=== PATIENT | male | born 1960 | race American Indian/Alaskan Native ===

== ENCOUNTER 2018-05-07 11:09 | Emergency (ER) | payer MEDICAID, OTHER ==
[2018-05-07 11:17] VITALS: BMI 30.2
--- NOTE | 2018-05-07 11:57 | ED PDOC ---
Lower Extremity Pain/Injury Time Seen by Provider: 05/07/18 11:22 Chief Complaint (Nursing): Lower Extremity Problem/Injury Chief Complaint (Provider): Leg pain History Per: Patient Additional Complaint(s): Pt is a 57 yo male presents with complaints of inner thigh pain from walking. Pt states he is homeless with biopolar/ schizophrenia. When asked if he had SI/HI he stated, "I murdered my mother and brother." Pt then talking to himself, unable to be understood by real estate underwriter. asked for some Haldol or cogentin. Pt declined any drug or alcohol use Past Medical History Reviewed: Nursing Documentation, Vital Signs Vital Signs: Last Vital Signs Temp 97 F L 05/07/18 11:16 Pulse 77 05/07/18 11:16 Resp BP 126/76 05/07/18 11:16 Pulse Ox 100 05/07/18 11:16 - Medical History PMH: Bipolar Disorder, Schizophrenia Denies: Diabetes, Hepatitis, HIV, HTN, Chronic Kidney Disease, Seizures, Sexually Transmitted Disease - Family History Family History: States: Unknown Family Hx - Home Medications Home Medications: Ambulatory Orders Medication Instructions Recorded Dilantin 04/17/14 Tegretol 04/17/14 risperiDONE [RisperDAL Tab] 3 mg PO BID #60 tab 04/27/14 - Allergies Allergies/Adverse Reactions: Allergies Allergy/AdvReac Type Severity Reaction Status Date / Time No Known Allergies Allergy Unverified 04/17/14 01:12 Review of Systems ROS Statement: Except As Marked, All Systems Reviewed And Found Negative Musculoskeletal: Positive for: Leg Pain Physical Exam - Reviewed Nursing Documentation Reviewed: Yes Vital Signs Reviewed: Yes - Physical Exam Appears: Positive for: Well, Non-toxic, No Acute Distress Head Exam: Positive for: ATRAUMATIC, NORMAL INSPECTION, NORMOCEPHALIC Skin: Positive for: Normal Color, Warm, DRY Eye Exam: Positive for: EOMI, Normal appearance, PERRL ENT: Positive for: Normal ENT Inspection Neck: Positive for: Normal, Painless ROM Cardiovascular/Chest: Positive for: Regular Rate, Rhythm Respiratory: Positive for: CNT, Normal Breath Sounds Gastrointestinal/Abdominal: Positive for: Normal Exam, Soft Back: Positive for: Normal Inspection Extremity: Positive for: Normal ROM, Other (no edema, ecchymosis, erythema or rash noted). Negative for: Tenderness, Deformity, Swelling Neurologic/Psych: Positive for: Alert, Oriented - Laboratory Results Result Diagrams: 05/07/18 13:44 05/07/18 13:44 - ECG O2 Sat by Pulse Oximetry: 100 Medical Decision Making Medical Decision Making: Diagnostics ordered for medical clearance. Pt placed on 1:1 and underwent crisis eval, see noted CBC and COMP WNL UDS (-) Alcohol < 10 UA: Trace leuks, 6 wbc CXR: NAD, as read by LALO EKG: SB at 54 bpm, no axis devation or acute TS changes, as read by LALO and ED MD Pt medically cleared and pending [facility] screener 1600 Case endorsed to LALO Spencer at 2000 pending [facility] evaluation Disposition - Clinical Impression Clinical Impression: Bipolar 1 disorder, Schizophrenia - Patient ED Disposition Is Patient to be Admitted: Transfer of Care - Disposition Disposition: Transfer of Care Disposition Time: 19:38 Condition: STABLE Forms: [facility] (Haitian)
--- NOTE | 2018-05-07 13:16 | RAD ---
Date of service: 05/07/2018 PROCEDURE: CHEST RADIOGRAPH, 1 VIEW HISTORY: med screening COMPARISON: 04/20/2014 FINDINGS: LUNGS: Mild hypoventilatory changes without appreciable focal infiltrate. PLEURA: No pneumothorax or pleural fluid seen. CARDIOVASCULAR: Normal. OSSEOUS STRUCTURES: No significant abnormalities. VISUALIZED UPPER ABDOMEN: Normal. OTHER FINDINGS: None. IMPRESSION: Low lung volumes with mild hypoinflated lungs but no focal infiltrate.
[2018-05-07 13:51] LABS: BASO % 0.4 % (0.0-2.0); EOS # 0.2 K/uL (0.0-0.7); EOS % 4.6 % (0.0-4.0); HEMOGLOBIN 12.6 g/dL (12.0-18.0); LYMPH # 1.4 K/uL (1.0-4.3); LYMPH % 27.5 % (20.0-40.0); MEAN CELL VOLUME 94.1 fl (80.0-94.0); MEAN CORPUSCULAR HEMOGLOBIN 31.1 pg (27.0-31.0); MEAN CORPUSCULAR HGB CONC 33.1 g/dL (33.0-37.0); MEAN PLATELET VOLUME 7.9 fl (7.2-11.7); MONO # 0.4 K/uL (0.0-0.8); MONO % 8.5 % (0.0-10.0); NRBC % 0.1 % (0.0-0.0); RBC 4.06 Mil/uL (4.40-5.90); RED CELL DISTRIBUTION WIDTH 13.7 % (11.5-14.5)
[2018-05-07 13:58] LABS: SQUAMOUS EPITHIAL 2 /hpf (0-5); URINE BILIRUBIN NEGATIVE (NEGATIVE); URINE BLOOD NEGATIVE (NEGATIVE); URINE CLARITY SLIGHTY-CLOUDY (Clear); URINE COLOR AMBER (YELLOW); URINE GLUCOSE (UA) NEG (Normal); URINE HYALINE CAST 0-2 /hpf (0-2); URINE LEUKOCYTE ESTERASE TRACE Leu/uL (Negative); URINE PROTEIN 30 mg/dL (NEGATIVE)
[2018-05-07 14:02] LABS: ALB/GLOB RATIO 1.2 (1.0-2.1); ALBUMIN 3.8 g/dL (3.5-5.0); ALT/SGPT 31 U/L (21-72); AST/SGOT 27 U/L (17-59); BLOOD UREA NITROGEN 8 mg/dl (9-20); CALCIUM 9.6 mg/dL (8.4-10.2); GFR NON-AFRICAN AMERICAN > 60
[2018-05-07 14:23] LABS: BARBITURATES, UR NEGATIVE (NEGATIVE); BENZODIAZEPINES, UR NEGATIVE (NEGATIVE); OPIATES, UR NEGATIVE (NEGATIVE); PHENCYCLIDINE, UR NEGATIVE (NEGATIVE)
--- NOTE | 2018-05-08 05:58 | ED PDOC ---
- Laboratory Results Result Diagrams: 05/07/18 13:44 05/07/18 13:44 - ECG O2 Sat by Pulse Oximetry: 98 <Bindu Spencer - Last Filed: 05/08/18 05:55> - Laboratory Results Result Diagrams: 05/07/18 13:44 05/07/18 13:44 <Dylan Albarado - Last Filed: 05/08/18 07:15> Medical Decision Making Medical Decision Making: Pt endorsed by LALO Alvarado pending evaluation of [facility]. Pt accepted by [facility] psychiatric unit. Pt calm and cooperative overnight in ER. Continued care at [address] Albarado. <Bindu Spencer - Last Filed: 05/08/18 05:55> Medical Decision Makin Patient endorsed to Dr. Alfonso, pending [facility] bed. <Dylan Albarado - Last Filed: 05/08/18 07:15> Disposition - POA Present On Arrival: None - Disposition Disposition: Transfer of Care Disposition Time: 06:00 <Bindu Spencer - Last Filed: 05/08/18 05:55> <Dylan Albarado - Last Filed: 05/08/18 07:15> - Clinical Impression Clinical Impression: Bipolar 1 disorder, Schizophrenia - Disposition Condition: STABLE Forms: [facility] (Uzbek)
--- NOTE | 2018-05-08 08:02 | CARD ---
APPROVED REPORT Date of service: 05/07/2018 EKG Measurement Heart [id number] <Conclusion> Sinus bradycardia Minimal voltage criteria for LVH, may be normal variant Borderline ECG
--- NOTE | 2018-05-08 14:54 | ED PDOC ---
- Laboratory Results Result Diagrams: 05/07/18 13:44 05/07/18 13:44 - ECG O2 Sat by Pulse Oximetry: 98 Disposition - Clinical Impression Clinical Impression: Bipolar 1 disorder, Schizophrenia - POA Present On Arrival: None - Disposition Disposition: Transfer of Care Disposition Time: 15:00 Condition: STABLE Forms: [facility] (Wolof) Patient Signed Over To: Susanna Goff
--- NOTE | 2018-05-08 15:56 | ED PDOC ---
- Laboratory Results Result Diagrams: 05/07/18 13:44 05/07/18 13:44 - ECG O2 Sat by Pulse Oximetry: 98 (RA) Pulse Ox Interpretation: Normal Medical Decision Making Medical Decision Makin:00 --Patient signed out to this provider pending bed availability at [facility] and psychiatric admission. 24:[address] Albarado. Pending bed availability at [facility] for involuntary psychiatric admission. Scribe Attestation: Documented by Joy Obando, acting as a scribe for Susanna Goff MD Provider Scribe Attestation: All medical record entries made by the Scribe were at my direction and personally dictated by me. I have reviewed the chart and agree that the record accurately reflects my personal performance of the history, physical exam, medical decision making, and the department course for this patient. I have also personally directed, reviewed, and agree with the discharge instructions and disposition. Disposition - Clinical Impression Clinical Impression: Bipolar 1 disorder, Schizophrenia - POA Present On Arrival: None - Disposition Disposition: Transfer of Care Disposition Time: 00:00 Condition: STABLE
--- NOTE | 2018-05-09 00:42 | ED PDOC ---
- Laboratory Results Result Diagrams: 05/07/18 13:44 05/07/18 13:44 - ECG O2 Sat by Pulse Oximetry: 98 (RA) Medical Decision Making Medical Decision Makin:00 Patient signed out to this provider. Pending bed availability at [facility]. 0300 Patient asleep, no complaints [address] Jackson pending bed availbility Scribe Attestation: Documented by Pavan Gaona acting as a scribe for Dylan Albarado MD. Provider Scribe Attestation: All medical record entries made by the Scribe were at my direction and personally dictated by me. I have reviewed the chart and agree that the record accurately reflects my personal performance of the history, physical exam, medical decision making, and the department course for this patient. I have also personally directed, reviewed, and agree with the discharge instructions and disposition. Disposition - Clinical Impression Clinical Impression: Bipolar 1 disorder, Schizophrenia - POA Present On Arrival: None - Disposition Disposition: Transfer of Care Disposition Time: 07:00 Condition: STABLE Forms: [facility] (Kuwaiti) Patient Signed Over To: Kassandra Jackson Handoff Comments: pending bed avaibility
--- NOTE | 2018-05-09 07:30 | ED PDOC ---
- Laboratory Results Result Diagrams: 05/07/18 13:44 05/07/18 13:44 - ECG O2 Sat by Pulse Oximetry: 98 (RA) Pulse Ox Interpretation: Normal Medical Decision Making Medical Decision Makin Received endorsement from Dr. Albarado. Patient [place] [facility] availability. 1115 Pt administered Ativan PO as ordered by Dr. Altamirano. Scribe Attestation: Documented by Eveline Gray, acting as a scribe for Kassandra Jackson MD. Provider Scribe Attestation: All medical record entries made by the Scribe were at my direction and personally dictated by me. I have reviewed the chart and agree that the record accurately reflects my personal performance of the history, physical exam, medical decision making, and the department course for this patient. I have also personally directed, reviewed, and agree with the discharge instructions and disposition. Disposition - Clinical Impression Clinical Impression: Bipolar 1 disorder, Schizophrenia - POA Present On Arrival: None - Disposition Disposition: Transfer of Care Disposition Time: 19:00 Condition: STABLE Patient Signed Over To: Susanna Goff
--- NOTE | 2018-05-09 09:46 | CP.PCM.CON ---
History of Present Illness - History of Present Illness History of Present Illness: Psychiatry consult note Patient is a poor historian due to acute psychosis, disorganization and lack of cooperation with interview CC: "I don't need to be here." HPI: 57 yo AA male, presents with delusions that he killed his family, bizarre affect, in the context of non-compliance with medications. He was minimally cooperative w/ interview, just stating that he needs to be discharged from the hospital and does not want to take any medications. Patient is pacing, standing in a menacing manner and has been verbally aggressive towards staff. PPHx: H/o Bipolar Disorder w/ psychotic features vs Schizoaffective Disorder; patient declines to provide extensive psychiatric history at this time SHx: Homeless; denies drug/etoh use; although as per records, patient has a h/o alcohol use Impression: 57 yo male w/ h/o Schizoaffective Disorder vs Bipolar Disorder w/ Psychotic Features, presents acutely decompensated in the context of non- compliance with treatment and medications. Patient accepted to [facility] for involuntary psychiatric admission. -Transfer to [facility] when bed is available -Haldol 5 mg PO/IM Q4Hr PRN agitation; Ativan 2 mg PO/IM Q4HR PRN agitation; Benadryl 50 mg PO/IM Q4HR PRN agitation Past Patient History - Past Medical History & Family History Past Medical History?: No - Past Social History Smoking Status: Heavy Smoker > 10 Cigarettes Daily - CARDIAC Hx Hypertension: No - PULMONARY Hx Tuberculosis: No - NEUROLOGICAL Hx Seizures: No - HEENT Hx HEENT Problems: No - RENAL Hx Chronic Kidney Disease: No - ENDOCRINE/METABOLIC Hx Endocrine Disorders: No - HEMATOLOGICAL/ONCOLOGICAL Hx Human Immunodeficiency Virus (HIV): No - INTEGUMENTARY Hx Dermatological Problems: No - MUSCULOSKELETAL/RHEUMATOLOGICAL Hx Musculoskeletal Disorders: No - GASTROINTESTINAL Hx Gastrointestinal Disorders: Yes Hx Ulcer: Yes - GENITOURINARY/GYNECOLOGICAL Hx Sexually Transmitted Disorders: No - PSYCHIATRIC Hx Bipolar Disorder: Yes Hx Schizophrenia: Yes - SURGICAL HISTORY Hx Surgeries: No - ANESTHESIA Hx Anesthesia: No Meds Allergies/Adverse Reactions: Allergies Allergy/AdvReac Type Severity Reaction Status Date / Time No Known Allergies Allergy Unverified 04/17/14 01:12 - Medications Medications: Current Medications Lorazepam (Ativan) 2 mg PO ONCE ONE Stop: 05/09/18 09:39 Results - Vital Signs Recent Vital Signs: Last Vital Signs Temp 98.2 F 05/09/18 08:00 Pulse 50 L 05/09/18 08:00 Resp 16 05/09/18 08:00 BP 114/66 05/09/18 08:00 Pulse Ox 100 05/09/18 08:00 - Labs Result Diagrams: 05/07/18 13:44 05/07/18 13:44
--- NOTE | 2018-05-09 13:12 | ED PDOC ---
HPI: Psych/Substance Abuse Time Seen by Provider: 05/07/18 11:22 Chief Complaint (Nursing): Lower Extremity Problem/Injury Past Medical History Vital Signs: Last Vital Signs Temp 98.2 F 05/09/18 08:00 Pulse 50 L 05/09/18 08:00 Resp 16 05/09/18 08:00 BP 114/66 05/09/18 08:00 Pulse Ox 100 05/09/18 08:00 - Medical History PMH: Bipolar Disorder, Schizophrenia Denies: Diabetes, Hepatitis, HIV, HTN, Chronic Kidney Disease, Seizures, Sexually Transmitted Disease - Family History Family History: States: Unknown Family Hx - Home Medications Home Medications: Ambulatory Orders Medication Instructions Recorded Dilantin 04/17/14 Tegretol 04/17/14 risperiDONE [RisperDAL Tab] 3 mg PO BID #60 tab 04/27/14 - Allergies Allergies/Adverse Reactions: Allergies Allergy/AdvReac Type Severity Reaction Status Date / Time No Known Allergies Allergy Unverified 04/17/14 01:12 - Laboratory Results Result Diagrams: 05/07/18 13:44 05/07/18 13:44 - ECG O2 Sat by Pulse Oximetry: 100 Disposition - Clinical Impression Clinical Impression: Bipolar 1 disorder, Schizophrenia - Disposition Disposition: Transfer of Care Disposition Time: 07:00 Condition: STABLE Forms: [facility] (Malaysian) - POA Present On Arrival: None
[2018-05-09 17:33] VITALS: RESP 20
--- NOTE | 2018-05-09 17:42 | CP.PCM.CON ---
History of Present Illness - History of Present Illness History of Present Illness: late note for [id number] pt seen in emergency room after presenting leg pain, has history of schizophrenia or schizaffective disorder, does not need those medicines i just came for getting my leg checked. pt gives minimal detail does not feel like talking, does not have psychiatric problems-does not take medications for psych because they do no help his leg. Review of Systems - Psychiatric Psychiatric: Abnormal Sleep Pattern, Anxiety, Behavioral Changes, Difficulty Co ncentrating, Mood Swings, Paranoia Past Patient History - Past Medical History & Family History Past Medical History?: No - Past Social History Smoking Status: Heavy Smoker > 10 Cigarettes Daily - CARDIAC Hx Hypertension: No - PULMONARY Hx Tuberculosis: No - NEUROLOGICAL Hx Seizures: No - HEENT Hx HEENT Problems: No - RENAL Hx Chronic Kidney Disease: No - ENDOCRINE/METABOLIC Hx Endocrine Disorders: No - HEMATOLOGICAL/ONCOLOGICAL Hx Human Immunodeficiency Virus (HIV): No - INTEGUMENTARY Hx Dermatological Problems: No - MUSCULOSKELETAL/RHEUMATOLOGICAL Hx Musculoskeletal Disorders: No - GASTROINTESTINAL Hx Gastrointestinal Disorders: Yes Hx Ulcer: Yes - GENITOURINARY/GYNECOLOGICAL Hx Sexually Transmitted Disorders: No - PSYCHIATRIC Hx Bipolar Disorder: Yes Hx Schizophrenia: Yes - SURGICAL HISTORY Hx Surgeries: No - ANESTHESIA Hx Anesthesia: No Meds Allergies/Adverse Reactions: Allergies Allergy/AdvReac Type Severity Reaction Status Date / Time No Known Allergies Allergy Unverified 04/17/14 01:12 - Medications Medications: defer taking medications as they do not help his leg Physical Exam - Psychiatric Exam Psychiatric exam: Agitated, Anxious Additional comments: labile at times , paranoid does not know why people are trying to give him psych meds for his leg, not making eye contact, minimally participating in interview, appears disheveled poor insight and judgment Results - Vital Signs Recent Vital Signs: Last Vital Signs Temp 98.4 F 05/09/18 17:05 Pulse 73 05/09/18 17:05 Resp 20 05/09/18 17:05 BP 109/69 05/09/18 17:05 Pulse Ox 97 05/09/18 17:05 - Labs Result Diagrams: 05/07/18 13:44 05/07/18 13:44 Assessment & Plan - Assessment and Plan (Free Text) Assessment: schioaffective disorder bipolar type vs bipolar disorder manic with psychotic features Plan: pt has poor insight and judgment, at risk for self harm as does not think he needs any help other than help with his leg (has been cleared by er md), pt is to be screened by [facility] for involuntary commitment per attending physician. case discussed with psychiatric worker er as well as attending md. - Date & Time Date: 05/08/18 Time: 11:30
--- NOTE | 2018-05-09 20:31 | ED PDOC ---
- Laboratory Results Result Diagrams: 05/07/18 13:44 05/07/18 13:44 - ECG O2 Sat by Pulse Oximetry: 97 - Progress ED Course And Treament: 5p Rec'd endorsement from Dr Jackson. Pt medically cleared for transfer to involuntary psych admission at [facility], pending bed availability. Bed available. Transfer initiated. Continues to be stable. Disposition - Clinical Impression Clinical Impression: Bipolar 1 disorder, Schizophrenia - POA Present On Arrival: None - Disposition Disposition: Other Institution Disposition Time: 17:00 Condition: STABLE
[2018-05-09] MEDS ORDERED: Sterile Water 10 ML IV ONE (20:46)
[2018-05-10 01:08] VITALS: BP 115/71; PULSE 82; TEMP 97.8; O2SAT 98
== END 2018-05-09 20:51 | disposition short-term general hospital (02) ==
LOC: H.ER 11:09
DX: F20.9 Schizophrenia, unspecified (principal); F31.9 Bipolar disorder, unspecified; Z59.0 Homelessness; Z91.14 Patient's other noncompliance with medication regimen; F17.210 Nicotine dependence, cigarettes, uncomplicated
CPT/HCPCS: 71045; 80053; 80320; 80324; 80345; 80346; 80349; 80353; 80358; 80361; 81003; 83992; 85025; 93005; 96372; 99285; J2060; J3486